=== PATIENT | male | born 1975 | race American Indian/Alaskan Native ===

== ENCOUNTER 2019-01-16 10:19 | Emergency (ER) | payer SELFPAY ==
[2019-01-16] MEDS ORDERED: IBUPROFEN PO ONE (10:51)
[2019-01-16] MEDS ORDERED: DEPO-Medrol IM ONE (10:51)
--- NOTE | 2019-01-16 10:52 | Emergency Department Report ---
ED Back Pain/Injury HPI - General Chief Complaint: Back Pain/Injury Stated Complaint: BACK AND LEG PAIN Time Seen by Provider: 01/16/19 10:49 Source: patient Limitations: No Limitations - History of Present Illness Initial Comments: 44 YO MALE COMES TO ER WITH LEFT LOW BACK PAIN- OVER HIGH BUTTOCKS - THAT RADIATES TO LEFT LEG. POS STRAIGHT LEG RAISE. 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 HE HAS HAD IT BEFORE IN THE OTHER LEG. NO CP NO SOB AMBULATORY BP IS ELEVATED HE HAS NO HX OF HTN- WE DISCUSSED PAIN/BP BUT HE UNDERSTANDS HE NEEDS TO MONITOR THIS NO EDEMA/JVD PULSES NORMAL BLE NO TRAUMA/FALL NO DYSURIA/HEMATURIA MD Complaint: back pain -: Sudden Similar Symptoms Previously: Yes Place: work Radiation: left leg Severity: mild Quality: burning Consistency: constant Improves With: immobilization Worsens With: movement Associated Symptoms: denies other symptoms - Related Data Previous Rx's Medication Instructions Recorded Last Taken Type Cyclobenzaprine [Flexeril] 10 mg PO TID PRN #10 tablet 01/16/19 Unknown Rx Ibuprofen [Motrin] 800 mg PO Q8HR PRN #30 tablet 01/16/19 Unknown Rx predniSONE [Deltasone] 20 mg PO DAILY #5 tablet 01/16/19 Unknown Rx Allergies Allergy/AdvReac Type Severity Reaction Status Date / Time No Known Allergies Allergy Unverified 01/16/19 10:20 ED Review of Systems ROS: Stated complaint: BACK AND LEG PAIN Other details as noted in HPI Comment: All other systems reviewed and negative ED Past Medical Hx - Past Medical History Medical history: no medical history ED Back Pain Physical Exam - Exam General: Vital signs noted. No distress. Alert and acting appropriately. Neuro: Yes Normal Sensation, Yes Normal DTR's, Yes Normal Gait, No Motor Weakness ED Course Vital Signs 01/16/19 10:34 Temperature 98.3 F Pulse Rate 87 Respiratory 18 Rate Blood Pressure 192/100 Blood Pressure 192/100 [Right] O2 Sat by Pulse 100 Oximetry ED Medical Decision Making - Medical Decision Making OBESE MALE LIFTS A LOT AT WORK POS L STRAIGHT LEG RAISE TEST NO DYSURIA/INCONTIN./PARASTHESIA MEDICATED IN ER EDUCATED ON BODY MECHANICS EDUCATED ON FOLLOWING BP TO BE SURE THIS IS RELATED TO PAIN DC HOME WITH PCP FOLLOW UP REFERRAL GIVEN Vital Signs 01/16/19 10:34 Temperature 98.3 F Pulse Rate 87 Respiratory 18 Rate Blood Pressure 192/100 Blood Pressure 192/100 [Right] O2 Sat by Pulse 100 Oximetry - Differential Diagnosis A/C SCIAT[facility] Critical care attestation.: If time is entered above; I have spent that time in minutes in the direct care of this critically ill patient, excluding procedure time. ED Disposition Clinical Impression: Sciatica, Elevated blood pressure reading Disposition: - TO HOME OR SELFCARE Is pt being admited?: No Does the pt Need Aspirin: No Condition: Stable Instructions: Lumbar Radiculopathy (ED), Heart Healthy Diet (ED), Low Sodium Diet (ED) Additional Instructions: MEDS ORDERED TODAY MONITOR YOUR BLOOD PRESSURE WORK ON YOUR WEIGHT IT WILL HELP BACK AND BLOOD PRESSURE FOLLOW UP WITH PCP REFERRAL BELOW WARM [employer] Referrals: MADHURI NICOLE MD [Staff Physician] - 3-5 Days Forms: Work/School Release Form(ED) Time of Disposition: 10:51
[2019-01-16 11:17] VITALS: BP 186/94
== END 2019-01-16 11:00 | disposition home or self-care (01) ==
LOC: ED 10:19
DX: M54.30 Sciatica, unspecified side (principal); R03.0 Elevated blood-pressure reading, without diagnosis of hypertension
CPT/HCPCS: 96372; 99282; J1040